=== PATIENT | female | born 1935 | race Caucasian/White ===

== ENCOUNTER 2018-06-14 10:21 | Emergency (ER) | payer MEDICARE, MEDICAID ==
[~2018-06-14] VITALS: Ht 149.9 cm; Wt 59.0 kg
[2018-06-14] MEDS ORDERED: HYDROCODONE/ACETAMINOPHEN 5/325MG TABLET PO ONE (13:30)
[2018-06-14 14:27] VITALS: BP 130/55
== END 2018-06-14 14:29 | disposition home or self-care (01) ==
LOC: ER 11:37
DX: S60.211A Contusion of right wrist, initial encounter (principal); I10 Essential (primary) hypertension; E11.9 Type 2 diabetes mellitus without complications; W06.XXXA Fall from bed, initial encounter; Y93.89 Activity, other specified; Y92.89 Other specified places as the place of occurrence of the external cause; Y99.8 Other external cause status
CPT/HCPCS: 29125; 73110; 99284; A4565